=== PATIENT | male | born 1945 | race African-American/Black ===

== ENCOUNTER 2021-11-17 11:56 | Outpatient (CLI) | payer MEDICARE ==
[~2021-11-17 11:56] MED LIST: Iopamidol 300 61% 100 ML VIAL FS ONE
== END 2021-11-17 11:57 | disposition home or self-care (01) ==
LOC: CSHCT 11:56
PROVIDERS: ATTEND Otolaryngology Otolaryngic Allergy
DX: C04.9 Malignant neoplasm of floor of mouth, unspecified (principal); R59.0 Localized enlarged lymph nodes
CPT/HCPCS: 70491; 82565